=== PATIENT | male | born 1950 | race Caucasian/White ===

== ENCOUNTER 2021-08-24 11:25 | Outpatient (CLI) | payer MEDICARE ==
[2021-08-25 10:23] LABS: SARS-CoV-2 PCR by NAA Not Detected (NotDetected)
== END 2021-08-24 11:26 | disposition home or self-care (01) ==
LOC: CSHLAB 11:25
PROVIDERS: ATTEND Internal Medicine Gastroenterology
DX: Z20.822 Contact with and (suspected) exposure to COVID-19 (principal)
CPT/HCPCS: U0003; U0005

== ENCOUNTER 2021-08-27 06:19 | Day surgery (SDC) | payer MEDICARE ==
[2021-08-25 10:57] VITALS: BMI 32.3
[2021-08-27] MEDS ORDERED: Lidocaine 1% MPF 2 ML VIAL ONE (07:30)
[2021-08-27] MEDS ORDERED: PROPOFOL 20 ML ONE (08:18)
== END 2021-08-27 09:15 | disposition home or self-care (01) ==
LOC: CSHSDC 06:19
PROVIDERS: ATTEND Internal Medicine Gastroenterology
PROC: 0DBP8ZZ Excision of Rectum, Via Natural or Artificial Opening Endoscopic (ICD-10-PCS; principal; 2021-08-27)
DX: Z12.11 Encounter for screening for malignant neoplasm of colon (principal); K51.90 Ulcerative colitis, unspecified, without complications; I10 Essential (primary) hypertension; E66.9 Obesity, unspecified; E78.5 Hyperlipidemia, unspecified
CPT/HCPCS: 88305; J2704

== ENCOUNTER 2022-12-02 07:17 | Day surgery (SDC) | payer OTHER ==
[2022-12-01 09:33] VITALS: BMI 31.5
[2022-12-02] MEDS ORDERED: Lidocaine 1% PF 5 ML VIAL ONE (09:20)
[2022-12-02] MEDS ORDERED: PROPOFOL 40 ML ONE (09:20)
== END 2022-12-02 10:20 | disposition home or self-care (01) ==
LOC: CSHSDC 07:17
PROVIDERS: ATTEND Internal Medicine Gastroenterology
PROC: 0DJD8ZZ Inspection of Lower Intestinal Tract, Via Natural or Artificial Opening Endoscopic (ICD-10-PCS; principal; 2022-12-02)
PROC: 0DDN8ZX Extraction of Sigmoid Colon, Via Natural or Artificial Opening Endoscopic, Diagnostic (ICD-10-PCS; 2022-12-02)
PROC: 0DBN8ZZ Excision of Sigmoid Colon, Via Natural or Artificial Opening Endoscopic (ICD-10-PCS; 2022-12-02)
DX: Z12.11 Encounter for screening for malignant neoplasm of colon (principal); K51.90 Ulcerative colitis, unspecified, without complications; K52.9 Noninfective gastroenteritis and colitis, unspecified; E66.9 Obesity, unspecified; I10 Essential (primary) hypertension; J45.909 Unspecified asthma, uncomplicated; Z90.49 Acquired absence of other specified parts of digestive tract; Z83.71 Family history of colonic polyps
CPT/HCPCS: 88305; J2704

== ENCOUNTER 2024-01-04 14:03 | Outpatient (CLI) | payer OTHER | END 2024-01-04 14:04 | disposition home or self-care (01) | LOC: CSHCP 14:03 | PROVIDERS: ATTEND Family Medicine | DX: J45.20 Mild intermittent asthma, uncomplicated (principal); J44.9 Chronic obstructive pulmonary disease, unspecified | CPT/HCPCS: 94060; 94726; 94729; 94760 ==